=== PATIENT | male | born 1990 | race Caucasian/White ===

== ENCOUNTER 2019-05-05 13:43 | Emergency (ER) | payer BC ==
[2019-05-05] MEDS: HYDROCODONE/APAP (5/325) TAB PO (16:16)
[2019-05-05] MEDS: IBUPROFEN 200 MG TAB PO (16:16)
== END 2019-05-05 17:07 | disposition home or self-care (01) ==
LOC: FTE 13:43
DX: S29.001A Unspecified injury of muscle and tendon of front wall of thorax, initial encounter (principal); W01.0XXA Fall on same level from slipping, tripping and stumbling without subsequent striking against object, initial encounter; Y92.9 Unspecified place or not applicable
CPT/HCPCS: 71100; 99283-25